=== PATIENT | female | born 1940 | race Hispanic/Latino ===

== ENCOUNTER → 2022-10-20 | Outpatient (CLI) | payer MEDICARE ==
[2022-10-20 11:56] LABS: HEMATOCRIT 44.5 % (36-48); MEAN CORPUSCULAR HEMOGLOBIN 31.6 pg (27.0-33.0); MEAN CORPUSCULAR HGB CONC 33.3 g/dL (32.0-36.0); MEAN CORPUSCULAR VOLUME 94.9 fL (79-99); MONOCYTES % (AUTO) 10.5 % (3.0-13.0); NEUTROPHILS % (AUTO) 52.3 % (40.0-77.0); PLATELET COUNT (AUTO) 202 K/uL (130-400); RED BLOOD CELL COUNT(AUTO) 4.69 MIL/uL (4.00-5.50); RED CELL DISTRIBUTION WIDTH 12.5 % (11.0-15.5); WHITE BLOOD COUNT (AUTO) 5.1 K/uL (4.8-10.8)
[2022-10-20 12:15] LABS: CREATININE 0.6 mg/dL (0.5-1.5); POTASSIUM 4.3 mmol/L (3.5-5.1); TOTAL PROTEIN, SERUM 7.7 g/dL (6.0-8.3)
== END | disposition home or self-care (01) ==
LOC: LAB 10:56
PROVIDERS: ATTEND Internal Medicine Gastroenterology
DX: R10.30 Lower abdominal pain, unspecified (principal)
CPT/HCPCS: 36415; 80053; 85025

== ENCOUNTER → 2022-10-26 | Outpatient (CLI) | payer MEDICARE ==
[~2022-10-26] MED LIST: IOHEXOL 350 MG/ML 100ML INFUS..BTL IV ONE
== END | disposition home or self-care (01) ==
LOC: RAH 08:12
PROVIDERS: ATTEND Internal Medicine Gastroenterology
DX: K57.90 Diverticulosis of intestine, part unspecified, without perforation or abscess without bleeding (principal); R10.30 Lower abdominal pain, unspecified; R19.05 Periumbilic swelling, mass or lump; N32.89 Other specified disorders of bladder; I25.10 Atherosclerotic heart disease of native coronary artery without angina pectoris; M47.815 Spondylosis without myelopathy or radiculopathy, thoracolumbar region; Z90.49 Acquired absence of other specified parts of digestive tract
CPT/HCPCS: 74178; Q9967

== ENCOUNTER → 2024-09-05 | Outpatient (CLI) | payer MEDICARE ==
--- NOTE | 2024-09-14 07:49 | HMCSR ---
APPROVED REPORT EXAM: Two-dimensional and M-mode echocardiogram with Doppler and color Doppler. INDICATION ICD: R01.1 Cardiac murmur, unspecified 2D Dimensions RVDd3.3 cmLVEF(%)61.3 (>50%)LVED Vol(simp.)83.0 mL IVSd1.2 (0.7-1.1cm)FS(%)33 %LVES Vol(simp.)32.0 mL LVDd4.2 (3.8-5.6cm)Ao Root(2D)2.8 (2.0-3.7cm)LVEF(%, simp.)62 % PWd1.0 (0.7-1.1cm)LVOT diam2.0 (1.8-2.4cm)LA ESV INDEX (BP)32.21 mL/m2 LVDs2.9 (2.5-4.0cm)IVC diam1.2 cm Aortic Valve AoV Vmax2.0 m/Yordy Peak GR16.0 mmHgLVOT Vmax0.9 m/s AoV VTI0.5 mAo Mean GR9.1 mmHgLVOT VTI0.24 m МАРИНА (VMAX)1.6 cm2AVA (VTI) 1.6 cm2 Mitral Valve MV E Eekw092.3 cm/sDECEL Gguw310 msMV Peak GR8 mmHg MV A Ajqo120.8 cm/sP 1/2 T85 msMV Mean GR3 mmHg E/A ratio0.7MVA (PHT)2.6 cm2MVA (VTI)1.7 cm2 MR Max PG51 mmHg TDI E/E' Hzrjtb96.2E/E' Pqtbszd39.6 Pulmonary Valve PV Vmax1.0 m/sPV VTI0.23 mPV Mean GR2 mmHg PV Peak GR4.2 mmHgPI End Gloria. Frank 0.9 cm/s Tricuspid Valve TR Vmax2.5 m/sRAP (EST) 3 piGpIOMD03.6 mmHg TR Peak GR24.6 mmHg Left Ventricle The left ventricle structure and function is normal. There is normal LV segmental wall motion. There is mild asymmetric left ventricular hypertrophy. LVEF is 60-65%. Grade 1 diastolic dysfunction Right Ventricle The right ventricle is normal size. The right ventricular systolic function is normal. Atria The left atrium size is normal. The right atrium size is normal. Aortic Valve Aortic valve is trileaflet. Aortic valve is mildly calcified. Trace aortic regurgitation. AV Dimensio nless Index is 0.5 Calculated aortic valve area is 1.6 cm2 with maximum pressure gradient of 16 mmHg and mean pressure gradient of 9.1 mmHg. Mitral Valve Mitral valve leaflets are mildly calcified. Mitral annular calcification is mild to moderate. Mitral regurgitation is trace. Calculated mitral valve area is 1.7 cm2 with maximum pressure gradient of 8.1 mmHg and mean pressure gradient of 2.8 mmHg. Tricuspid Valve The tricuspid valve leaflets appear normal. There is trace tricuspid regurgitation. Pulmonic Valve Pulmonic valve is not well visualized. There is trace pulmonic valvular regurgitation. Great Vessels The aortic root is normal in size. The IVC is normal in size and collapses >50% with inspiration. Pericardium No pericardial effusion. Conclusion LVEF is 60-65%. Grade 1 diastolic dysfunction There is normal LV segmental wall motion. Aortic valve is trileaflet. Aortic valve is mildly calcified. Calculated aortic valve area is 1.6 cm2 with maximum pressure gradient of 16 mmHg and mean pressure g radient of 9.1 mmHg. Mitral valve leaflets are mildly calcified. Mitral annular calcification is mild to moderate. Calculated mitral valve area is 1.7 cm2 with maximum pressure gradient of 8.1 mmHg and mean pressure gradient of 2.8 mmHg.
== END | disposition home or self-care (01) ==
LOC: SHCH 11:30
PROVIDERS: ATTEND Internal Medicine Cardiovascular Disease
DX: I08.0 Rheumatic disorders of both mitral and aortic valves (principal); R01.1 Cardiac murmur, unspecified
CPT/HCPCS: 93306